=== PATIENT | female | born 1940 | race Caucasian/White ===

== ENCOUNTER → 2016-08-22 | Outpatient (CLI) | payer MEDICARE, BC ==
--- NOTE | 2016-08-22 11:14 | KCIC ---
Thyroid ultrasound Indication: Reason For Study Reason: LOCALIZED MASS OF NECK / Spl. Instructions: / History: Technique: Multiple real-time grayscale sonographic images were obtained over the thyroid. Findings: The right lobe of the thyroid measures 6.7 by 4.2 x 4.0 centimeters. There is a complex solid vascular mass in the right lobe that measures 5.8 x 3.9 x 3.2 centimeters. The isthmus measures 2-3 millimeters. The left lobe measures 5.8 x 2.2 x 1.6 centimeters. There are 2 interpolar masses, the larger of which is solid and hypoechoic measuring up to 2.9 centimeters. The smaller adjacent lesion measures 2.1 centimeters and demonstrates scattered calcification. Impression: - Bilateral thyroid nodules. Consider biopsy of the large right thyroid nodule in the calcified nodule on the left if not already performed. Electronically signed by: Bird Islas (Aug 22, 2016 11:12:51)
== END | disposition home or self-care (01) ==
LOC: KCIC US 10:02
PROVIDERS: ATTEND Family Medicine
DX: E04.2 Nontoxic multinodular goiter (principal)
CPT/HCPCS: 76536

== ENCOUNTER → 2017-03-07 | Outpatient (CLI) | payer MEDICARE ==
--- NOTE | 2017-03-07 15:33 | RAD ---
DATE: 03/07/2017 EXAM: MAMMO CANDIDA SCREENING BILATERAL HISTORY: Routine screening COMPARISON: 02/17/2016 The breast parenchyma shows scattered fibroglandular densities. Breast parenchyma level B. FINDINGS: 2-D and 3-D tomosynthesis imaging was performed in CC and MLO projections. There are several tiny smooth nodules in both breasts, better delineated on the current tomograms. No new or enlarging breast densities are seen. Scattered benign type calcifications are present. No suspicious microcalcifications have developed. IMPRESSION: Stable mammograms without evidence of malignancy. BI-RADS CATEGORY: 2 BENIGN FINDING(S) RECOMMENDED FOLLOW-UP: 12M 12 MONTH FOLLOW-UP PQRS compliance statement: Patient information was entered into a reminder system with a target due date for the next mammogram. Mammography is a sensitive method for finding small breast cancers, but it does not detect them all and is not a substitute for careful clinical examination. A negative mammogram does not negate a clinically suspicious finding and should not result in delay in biopsying a clinically suspicious abnormality. "Our facility is accredited by the [employer] Mammography [employer]."
== END | disposition home or self-care (01) ==
LOC: KCIC MAMMO 10:07
PROVIDERS: ATTEND Family Medicine
DX: Z12.31 Encounter for screening mammogram for malignant neoplasm of breast (principal)
CPT/HCPCS: 77063; G0202; 77067

== ENCOUNTER → 2018-02-07 | Outpatient (CLI) | payer MEDICARE, BC | END | disposition home or self-care (01) | LOC: KCIC US 09:50 | DX: I80.3 Phlebitis and thrombophlebitis of lower extremities, unspecified (principal) | CPT/HCPCS: 93971 ==

== ENCOUNTER → 2019-03-10 | Outpatient (CLI) | payer MEDICARE, BC ==
--- NOTE | 2019-03-10 14:04 | KCIC ---
EXAM: Bilateral digital screening mammogram with tomosynthesis. HISTORY: 78-year-old female presents for screening mammography. TECHNIQUE: Full-field digital craniocaudal and mediolateral oblique 2D and 3D tomosynthesis images of both breasts are obtained for evaluation. Computer aided detection with [employer]the[employer] software version 9.3 was applied. COMPARISON: 03/08/2018 and 03/07/2017 BREAST PARENCHYMAL DENSITY: Level B - Scattered fibroglandular densities. FINDINGS: There is no new suspicious mass, microcalcification or region of architectural distortion. IMPRESSION: BI-RADS Category 2: Benign finding(s). RECOMMENDATION: Annual mammography is recommended. If your mammogram demonstrates that you have dense breast tissue, which could hide abnormalities, and if you have other risk factors for breast cancer that have been identified, you might benefit from supplemental screening tests that may be suggested by your ordering physician. Dense breast tissue, in and of itself, is a relatively common condition. This information is not provided to cause undue concern, but rather to raise your awareness and to promote discussion with your physician regarding the presence of other risk factors, in addition to dense breast tissue. A report of your mammography results will be sent to you and your physician. You should contact your physician if you have any questions or concerns regarding this report. Mammography is a sensitive method for finding small breast cancers, but it does not detect them all and is not a substitute for careful clinical examination. A negative mammogram does not negate a clinically suspicious finding and should not result in delay in biopsying a clinically suspicious abnormality. PQRS compliance statement - Patient information was entered into a reminder system with a target due date for the next mammogram. "Our facility is accredited by the [employer] Mammography [employer]." Electronically signed by: Geovanna Vega MD (03/10/2019 2:01 PM) [id number]
== END | disposition home or self-care (01) ==
LOC: KCIC MAMMO 09:47
PROVIDERS: ATTEND Family Medicine
DX: Z12.31 Encounter for screening mammogram for malignant neoplasm of breast (principal)
CPT/HCPCS: 77063; 77067

== ENCOUNTER → 2020-03-12 | Outpatient (CLI) | payer MEDICARE, BC ==
--- NOTE | 2020-03-12 15:04 | KCIC ---
Bilateral digital screening mammograms with 3-D tomosynthesis: Reason for examination: Routine screening. Comparison is made to previous studies dated back to 03/07/2017. Bilateral mammograms in CC and oblique projections were obtained with 2-D imaging and 3-D tomosynthesis imaging on a Siemens Inspiration unit and reviewed on the workstation. Interpretation was made with the benefit of CAD. The skin and nipples show no abnormalities. No abnormal axillary lymph nodes are seen. The breast parenchyma shows scattered fatty and fibroglandular density. (Breast density: Category B.) There are small parenchymal asymmetries bilaterally which are unchanged. There are no new dominant masses, suspicious calcifications or architectural distortion. Benign calcifications are present. Impression: No evidence of malignancy. Recommend routine screening. BI-RAD Category 2: Benign. "Our facility is accredited by the [employer] Mammography [employer]." This patient's information has been entered into a reminder system for the patient to be notified with the results of her examination and a target date for the next mammogram. Electronically signed by: Amina Chaidez MD (03/12/2020 3:01 PM) [id number]
== END | disposition home or self-care (01) ==
LOC: KCIC MAMMO 10:03
PROVIDERS: ATTEND Family Medicine
DX: Z12.31 Encounter for screening mammogram for malignant neoplasm of breast (principal)
CPT/HCPCS: 77063; 77067

== ENCOUNTER → 2020-08-10 | Outpatient (CLI) | payer MEDICARE, BC ==
--- NOTE | 2020-08-10 16:22 | KCIC ---
EXAM: XR BILATERAL HIP (WITH OR WITHOUT PELVIS) 2 VIEWS_RIGHT 08/10/2020 11:00 AM CLINICAL INDICATION: Right hip pain for 5 months after bending in [place] COMPARISON: None TECHNIQUE: 2 views of the right hip FINDINGS: There is no acute fracture. Alignment is normal. There is mild medial hip joint space narr owing. The right sacroiliac joint and pubic symphysis are unremarkable. No soft tissue abnormality. IMPRESSION: No acute osseous abnormality. Mild degenerative joint disease. Electronically signed by: Aleksandra Deras MD (08/10/2020 4:19 PM) [id number]
== END ==
LOC: KCIC 10:54
PROVIDERS: ATTEND Family Medicine
DX: M16.11 Unilateral primary osteoarthritis, right hip (principal); M25.551 Pain in right hip
CPT/HCPCS: 73502

== ENCOUNTER → 2021-03-14 | Outpatient (CLI) | payer MEDICARE, BC ==
--- NOTE | 2021-03-14 12:02 | KCIC ---
Bilateral digital screening mammograms with 3-D tomosynthesis: Reason for examination: Routine screening. Comparison is made to previous studies dated back to 02/17/2016.. Bilateral mammograms in CC and oblique projections were obtained with 2-D imaging and 3-D tomosynthes is imaging on a Siemens Inspiration unit and reviewed on the workstation. Interpretation was made wit h the benefit of CAD. The skin and nipples show no abnormalities. No abnormal axillary lymph nodes are seen. The breast par enchyma shows scattered fatty and fibroglandular density. (Breast density: Category B.) There are no dominant masses, suspicious calcifications or architectural distortion. Benign secretory type calcifi cations are present. Impression: No evidence of malignancy. Recommend routine screening. BI-RAD Category 2: Benign. "Our facility is accredited by the [employer] Mammography [employer]." This patient's information has been entered into a reminder system for the patient to be notified wit h the results of her examination and a target date for the next mammogram. Electronically signed by: Amina Chaidez MD (03/14/2021 12:00 PM) [id number]
== END ==
LOC: KCIC MAMMO 09:53
PROVIDERS: ATTEND Family Medicine
DX: Z12.31 Encounter for screening mammogram for malignant neoplasm of breast (principal)
CPT/HCPCS: 77063; 77067